=== PATIENT | female | born 1960 | race American Indian/Alaskan Native ===

== ENCOUNTER 2017-06-20 11:36 | Outpatient (CLI) | payer OTHER ==
[2017-06-20 12:20] LABS: Blood Urea Nitrogen 18 mg/dL (7-17)
--- NOTE | 2017-06-20 13:12 | Cat Scan Report ---
CT HEAD WITH AND WITHOUT CONTRAST: HISTORY: Headache, vision changes. Serial contiguous axial images were obtained through the cranium, both before and after the administration of intravenous contrast material. The ventricles are normal in size and appearance. There is no mass effect or midline shift. No areas of abnormally increased or decreased attenuation are seen. No mass lesion is seen. The mastoid air cells and visualized portions of the sinuses are normal. IMPRESSION: Cranial CT scan within normal limits.
== END 2017-06-20 11:37 | disposition home or self-care (01) ==
LOC: CT 11:36
PROVIDERS: ATTEND Internal Medicine
DX: H53.9 Unspecified visual disturbance (principal); R51 Headache
CPT/HCPCS: 36415; 70470; 82565; 84520; Q9967